=== PATIENT | female | born 1965 | race African-American/Black ===

== ENCOUNTER 2025-01-20 11:04 | Emergency (ER) | payer MEDICAID ==
[~2025-01-20] VITALS: Ht 154.9 cm; Wt 63.5 kg
[2025-01-20 11:25] VITALS: O2SAT 100
[2025-01-20 12:26] LABS: BASOPHILS % 0.4 % (0.0-2.0); DIFFERENTIAL COMMENT 0; EOSINOPHILS % 0.3 % (0.0-5.0); HEMATOCRIT. 38.5 % (36.0-48.0); HEMOGLOBIN. 11.9 g/dL (12.0-16.0); LYMPHOCYTES % 16.5 % (20.0-50.0); MEAN CORPUSCULAR HEMOGLOBIN 22.4 pg (28.0-32.0); MEAN CORPUSCULAR VOLUME 72.3 fL (81.0-99.0); MEAN PLATELET VOLUME 7.7 fl (7.4-10.4); MONOCYTES % 9.6 % (2.0-8.0); NEUTROPHILS % 73.2 % (40.0-76.0); PLATELET 323 x1000/uL (130-400); RED BLOOD CELL COUNT 5.32 mill/uL (4.2-5.4); RED CELL DISTRIBUTION WIDTH 15.5 % (11.6-14.6); WHITE BLOOD COUNT 12.8 x1000/uL (4.5-11.0)
[2025-01-20 12:27] LABS: CHLORIDE 97 mEq/L (98-107); POTASSIUM 3.5 mEq/L (3.5-5.1); SODIUM 130 mEq/L (136-145)
[2025-01-20] MEDS: KETOROLAC 15MG/ML VIAL IV ONE (12:27)
[2025-01-20] MEDS: SODIUM CHLORIDE 0.9% 1,000 ML IV ONE (12:27)
[2025-01-20 12:28] LABS: CALCIUM 9.6 mg/dL (8.7-10.4); CARBON DIOXIDE 26 mEq/L (21-32)
[2025-01-20 12:33] LABS: CREATININE 0.8 mg/dL (0.6-1.0); GLUCOSE 202 mg/dL (70-105); TROPONIN I HIGH SENSITIVITY 8 ng/L (3.0-34); UREA NITROGEN BLOOD 11 mg/dL (9-23)
[2025-01-20] MEDS: INSULIN REGULAR (HUMULIN R) 1000UNITS/10ML VIAL IV ONE (12:38)
[2025-01-20 12:47] LABS: ETHANOL BLOOD < 10 mg/dL (<10); INR 0.9; PROTHROMBIN TIME 10.2 sec (9.6-11.0)
[2025-01-20 12:54] LABS: ALANINE AMINOTRANSFERASE < 7 IU/L (10-49); ALBUMIN 3.8 g/dL (3.2-4.8); BILIRUBIN DIRECT 0.2 mg/dL (<=3.0); BILIRUBIN TOTAL 0.8 mg/dL (0.1-1.0); PROTEIN TOTAL 7.5 g/dL (6.0-8.3)
[2025-01-20 12:57] LABS: ASPARTATE AMINOTRANSFERASE < 8 IU/L (<34); BETA HYDROXYBUTYRATE < 0.1 mMol/L (0.0-0.3)
[2025-01-20 15:01] LABS: *AMPHETAMINES SCREEN URINE PRESUMPTIVE POSITIVE (NEGATIVE); *BARBITURATES SCREEN URINE NEGATIVE (NEGATIVE); *BENZODIAZEPINES SCREEN URINE NEGATIVE (NEGATIVE); *COCAINE SCREEN URINE NEGATIVE (NEGATIVE); CANNABINOID URINE SCREEN NEGATIVE (NEGATIVE); ECSTASY MDMA SCREEN URINE CONF.TEST INDICATED (NEGATIVE); METHADONE URINE SCREEN NEGATIVE (NEGATIVE); OPIATES URINE SCREEN NEGATIVE (NEGATIVE); PHENCYCLIDINE URINE SCREEN NEGATIVE (NEGATIVE)
[2025-01-20 15:17] LABS: CLARITY URINE CLOUDY (CLEAR); COLOR URINE YELLOW (YELLOW); GLUCOSE URINE NEGATIVE (NEGATIVE); KETONES URINE NEGATIVE (NEGATIVE); LEUKOCYTE ESTERASE URINE 3+ (NEGATIVE); NITRITE URINE POSITIVE (NEGATIVE); OCCULT BLOOD URINE 2+ (NEGATIVE); PROTEIN URINE 1+ (NEGATIVE); SPECIFIC GRAVITY URINE 1.009 (1.005-1.030); UROBILINOGEN URINE 0.2 E.U./dL (0.2-1.0)
[2025-01-20 15:32] LABS: BACTERIA URINE 4+; SQUAMOUS EPITHELIAL CELL URINE FEW /lpf (RARE/1+)
[2025-01-20 15:33] LABS: RBC URINE 0-2 /hpf (0-2); WBC URINE TNTC /hpf (0-2)
[2025-01-20] MEDS ORDERED: METF-414 MT (16:00)
[2025-01-20] MEDS ORDERED: CEPH500C2 MT (16:00)
[2025-01-20] MEDS: CEFTRIAXONE 1GM/50ML 50 ML IV ONE (16:08)
[2025-01-20 16:42] VITALS: BP 133/78; PULSE 88; RESP 18; TEMP 37.1; O2SAT 99
== END 2025-01-20 16:43 | disposition home or self-care (01) ==
LOC: ER 11:04
DX: E11.65 Type 2 diabetes mellitus with hyperglycemia (principal); M19.90 Unspecified osteoarthritis, unspecified site; Z79.899 Other long term (current) drug therapy
CPT/HCPCS: 80076; 80305; 80048; 81003; 82010; 80320; 82962; 83690; 85025; 85610; 87086; 87186; 84484; 87077; 36415; 74176; 93005; 96361; 96365; 96375; 99285; J0696; J1885; J7030; Z7610; G0480